=== PATIENT | female | born 1975 | race Caucasian/White ===

== ENCOUNTER 2017-03-20 07:50 | Outpatient (CLI) | payer OTHER ==
--- NOTE | 2017-03-20 18:31 | Ultrasound Report ---
EXAM: ABDOMEN ULTRASOUND LIMITED EXAM DATE: 03/20/2017 08:43 AM. CLINICAL HISTORY: LLQ pain x 2 weeks. Cervical uterine. COMPARISON: None. TECHNIQUE: Real-time scanning was performed with static images obtained. FINDINGS: Ultrasound evaluation of the left lower quadrant reveals prominent gas-filled peristalsing bowel. No sign of bowel wall thickening, mass, cyst, or free fluid. IMPRESSION: No ultrasound abnormality identified in the left lower quadrant. [facility] Referring Provider Line: [phone] SITE ID: [id number]
--- NOTE | 2017-03-20 21:20 | Ultrasound Report ---
EXAM: PELVIC ULTRASOUND EXAM DATE: 03/20/2017 09:48 AM. CLINICAL HISTORY: Left lower quadrant pain for 5 weeks. Cervical and uterine tenderness with palpatio n. COMPARISON: None. TECHNIQUE: Realtime transabdominal pelvic scan performed to identify the uterus and adnexa and as an overview of other pelvic structures, followed by transvaginal scan to provide greater detail of the u terus and adnexa, with static image documentation. FINDINGS: Uterus: 9.4 x 5.8 x 7.0 cm, volume 201.5 cc. Retroverted position. Normal overall size. Coarse echote xture. Masses: Intramural fibroid mid uterus 2.3 x 1.3 x 1.9 cm. Endometrium: 12 mm. Normal. Cervix: Unremarkable. Right Ovary: 4.5 x 3.2 x 3.4 cm, volume 24.8 cc. Normal echotexture and blood flow. Small cyst or fol licle, 3.0 x 2.6 x 2.5 cm. Left Ovary: 5.4 x 2.5 x 3.1 cm, volume cc. Normal echotexture and blood flow. Free Fluid: Small amount, likely physiologic. Other: None. IMPRESSION: 1. Retroverted uterus with small intramural fibroid and with coarse echotexture, possibly adenomyosis . 2. Small right ovarian cyst or dominant follicle. [facility] Referring Provider Line: [phone] SITE ID: [id number]
== END 2017-03-20 07:51 | disposition home or self-care (01) ==
LOC: DI 07:50
PROVIDERS: ATTEND Family Medicine
DX: R10.32 Left lower quadrant pain (principal); N85.4 Malposition of uterus; D25.1 Intramural leiomyoma of uterus
CPT/HCPCS: 76705; 76830; 76856